=== PATIENT | female | born 1980 | race Caucasian/White ===

== ENCOUNTER 2020-10-16 17:39 | Emergency (ER) | payer OTHER, SELFPAY ==
[2020-10-16 17:53] VITALS: BP 133/83; PULSE 69; RESP 16; TEMP 36.1; O2SAT 100
--- NOTE | 2020-10-16 17:56 | ED.SKABFB ---
HPI - Skin/Abscess/Foreign Bdy General Chief complaint: Extremity Problem,Nontraumatic Stated complaint: pain left 1st digit Time Seen by Provider: 10/16/20 17:50 Source: patient and RN notes reviewed Mode of arrival: ambulatory Limitations: no limitations History of Present Illness HPI narrative: 40-year-old female presents concern for pain, swelling, drainage next to the nailbed of her first toe of the left foot. Reports she had an ingrown toenail that she picked at, and had purulent drainage. Reports the purulent drainage has improved, however she still has pain, redness, swelling. complaint: other (Paronychia) Related Data Home Medications Medication Instructions Recorded Confirmed bupropion HCl [Wellbutrin XL] 300 mg PO QAM 10/16/20 10/16/20 fluoxetine 60 mg PO QAM 10/16/20 10/16/20 Allergies Allergy/AdvReac Type Severity Reaction Status Date / Time acetaminophen [From Vicodin] Allergy Hives Verified 10/16/20 18:00 hydrocodone [From Vicodin] Allergy Hives Verified 10/16/20 18:00 Review of Systems Review of Systems: Narrative: CONSTITUTIONAL: Denies malaise, chills, sweats, or fever. SKIN: Reports pain, swelling, drainage next the nailbed of the first digit of the left foot MUSCULOSKELETAL: Denies musculoskeletal pain, decreased range of motion NEUROLOGIC: Denies numbness, weakness All systems reviewed & are unremarkable except as noted in HPI and below PMFSH Comments At time of signature, agree with nursing past medical, surgical, social and family history. There is no relevant family history pertinent to the presenting complaint Exam Narrative: Exam Narrative: GENERAL: Well-appearing, well-nourished, and in no acute distress. HEAD: Normocephalic, atraumatic. EYES: PERRLA, conjunctivae clear ENT: Mucous membranes moist. NECK: Supple. No lymphadenopathy CHEST: Clear to auscultation. No respiratory distress. HEART: Regular rate and rhythm. SKIN: Warm, dry. Erythema, mild edema to the lateral edge of the nailbed with first digit of the left foot with superficial abrasion with pink wound bed, small amount of purulent drainage noted, no fluctuation. NEURO: Alert and oriented x3. PSYCH: Normal mood and affect Course Course Emergency Course: Patient is aware of diagnosis, understands and agrees to treatment plan. Anticipatory guidance given. Patient agrees to follow-up as directed and is aware of reasons to seek care at the emergency department. Portions of this record may have been created with voice recognition software Vital Signs Vital signs: Vital Signs Temperature 96.9 F L 10/16/20 17:53 Pulse Rate 69 10/16/20 17:53 Respiratory Rate 16 10/16/20 17:53 Blood Pressure 133/83 10/16/20 17:53 Pulse Oximetry 100 10/16/20 17:53 Temperature 96.9 F L 10/16/20 17:53 Pulse Rate 69 10/16/20 17:53 Respiratory Rate 16 10/16/20 17:53 Blood Pressure 133/83 10/16/20 17:53 Pulse Oximetry 100 10/16/20 17:53 Reviewed. MDM - Skin/Abscess/Foreign Bdy MDM Narrative Medical decision making narrative: Exam findings show no acute concerns or changes; patient is non-toxic appearing and is in no distress. Patient is appropriate for outpatient treatment and follow-up. Differential Diagnosis Differential diagnosis: Likely abscess of skin or subcutaneous tissue, cellulitis, impetigo and other (Paronychia, musculoskeletal injury) Critical Care Time Critical Care Time Critical Care Time: No Discharge Plan Discharge Clinical Impression: Paronychia Patient Disposition: Home, Self-Care Condition: Stable Instructions: Antibiotic Form, Paronychia (ED) Additional Instructions: Soak your nail: Soak your nail in a mixture of equal parts vinegar and water 3 or 4 times each day. This will help decrease inflammation. Apply a warm compress: Soak a washcloth in warm water and place it on your nail. This will help decrease inflammation. Elevate: Raise your nail above the level of your hea
== END 2020-10-16 18:02 | disposition home or self-care (01) ==
PROVIDERS: Emergency Provider Nurse Practitioner
DX: L03.032 Cellulitis of left toe (principal)
CPT/HCPCS: 99203; G0463

== ENCOUNTER 2021-01-09 16:15 | Emergency (ER) | payer OTHER, SELFPAY ==
[2021-01-09 16:23] VITALS: BP 138/74; PULSE 86; RESP 18; TEMP 36; O2SAT 98
--- NOTE | 2021-01-09 16:44 | ED.EAR ---
HPI - Ear Problem General Chief complaint: Ear Stated complaint: Lt ear Time Seen by Provider: 01/09/21 16:37 Source: patient and RN notes reviewed Mode of arrival: ambulatory Limitations: no limitations History of Present Illness HPI Narrative: Patient presents today complaining of left ear pain x3 weeks with nasal congestion, rhinorrhea. She also reports waxing and waning hearing in the left ear. She currently rates her pain 3/10 and has been taking allergy medication, Tylenol sinus, and [id number] eardrops without relief. 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 Denies cough, fever, sore throat. She has been vaccinated against COVID-19. Patient also reports frequent ear infections MD Complaint: ear pain and decreased hearing Related Data Home Medications Medication Instructions Recorded Confirmed bupropion HCl [Wellbutrin XL] 300 mg PO QAM 10/16/20 10/16/20 fluoxetine 60 mg PO QAM 10/16/20 10/16/20 duloxetine mg PO 01/09/21 Allergies Allergy/AdvReac Type Severity Reaction Status Date / Time acetaminophen [From Vicodin] Allergy Hives Verified 10/16/20 18:00 hydrocodone [From Vicodin] Allergy Hives Verified 10/16/20 18:00 Review of Systems Review of Systems: CONSTITUTIONAL: Denies body aches, fever, chills, or sweats. EYES: Denies visual changes, redness, or discharge. ENT: Denies sore throat. + Rhinorrhea, congestion, decreased hearing, left ear pain CARDIOVASCULAR: Denies chest pain, palpitations, or edema. RESPIRATORY: Denies cough or dyspnea. GASTROINTESTINAL: Denies abdominal pain, nausea, vomiting, or diarrhea. GENITOURINARY: Denies dysuria or hematuria. SKIN: Denies rash, itching, or wounds. MUSCULOSKELETAL: Denies back pain, joint pain, or myalgia. NEUROLOGIC: Denies headache, numbness, tingling, or weakness. PSYCH: Denies depression or anxiety. PMFSH Comments At time of signature, I have reviewed and agree with nursing past medical, surgical, social and family history unless otherwise noted. Please see nursing chart for further information. There is no relevant family history pertinent to the presenting complaint Exam Narrative: GENERAL: Well-appearing, well-nourished, and in no acute distress. HEAD: Normocephalic, atraumatic. EYES: EOMI. No redness or drainage. Conjunctivae normal. ENT: Mucous membranes pink and moist. Congested. Left TM retracted. Right TM mildly erythematous and bulging with clear fluid. Throat normal. Uvula midline. NECK: Normal AROM. Supple. No lymphadenopathy. CHEST: No respiratory distress. Clear to auscultation. HEART: Regular rate and rhythm. No murmur appreciated. Normal peripheral pulses. EXTREMITIES: Normal range of motion. No edema. SKIN: Warm, dry, no rash. Capillary refill normal. Normal skin turgor. NEURO: No focal deficits. Alert and oriented x3. Gait steady. PSYCH: Normal affect. No signs of depression or anxiety. Course Vital Signs Vital signs: Vital Signs Temperature 96.8 F L 01/09/21 16:23 Pulse Rate 86 01/09/21 16:23 Respiratory Rate 18 01/09/21 16:23 Blood Pressure 138/74 01/09/21 16:23 Pulse Oximetry 98 01/09/21 16:23 Temperature 96.8 F L 01/09/21 16:23 Pulse Rate 86 01/09/21 16:23 Respiratory Rate 18 01/09/21 16:23 Blood Pressure 138/74 01/09/21 16:23 Pulse Oximetry 98 01/09/21 16:23 Reviewed. Pt has been instructed to follow up with her PCP regarding her elevated blood pressure today. Medical Decision Making Differential Diagnosis Differential Diagnosis: URI, AOM, otitis externa, ruptured TM, serous otitis, eustachian tube dysfunction, sinusitis Vital Signs Vital Signs: Vital Signs Temperature 96.8 F L 01/09/21 16:23 Pulse Rate 86 01/09/21 16:23 Respiratory Rate 18 01/09/21 16:23 Blood Pressure 138/74 01/09/21 16:23 Pulse Oximetry 98 01/09/21 16:23 Temperature 96.8 F L 01/09/21 16:23 Pulse Rate 86 01/09/21 1
== END 2021-01-09 16:52 | disposition home or self-care (01) ==
PROVIDERS: Emergency Provider Nurse Practitioner
DX: J06.9 Acute upper respiratory infection, unspecified (principal)
CPT/HCPCS: 99213; G0463

== ENCOUNTER → 2021-04-17 13:31 | Outpatient (CLI) | payer OTHER, SELFPAY ==
--- NOTE | ~2021-04-17 | CT_ITS ---
EXAMINATION: CT sinus wo con DATE: 04/17/2021 13:50 INDICATION: Chronic sinusitis TECHNIQUE: Computed tomography (CT) of the paranasal sinuses was performed without contrast. Iterativ e reconstruction technique was employed. Exam dose: 306.55 mGy-cm total exam DLP. COMPARISON: None FINDINGS: There is leftward bowing of the nasal septum. There is moderately prominent asymmetric soft tissue swelling of the right middle and inferior nasal turbinates. The ostiomeatal units, paranasal sinuses and mastoid air cells are normally developed and aerated. IMPRESSION: Patent paranasal sinuses, ostiomeatal units and mastoid air cells Leftward bowing of nasal septum Asymmetric soft tissue swelling of right nasal turbinates Reviewed, dictated and finalized at [facility]. Reviewed, dictated and finalized at [facility].
== END ==
PROVIDERS: PCP Family Medicine; Visit Provider Otolaryngology
DX: J32.9 Chronic sinusitis, unspecified (principal); J34.2 Deviated nasal septum; M79.89 Other specified soft tissue disorders
CPT/HCPCS: 70486

== ENCOUNTER 2022-06-29 16:22 | Emergency (ER) | payer OTHER, SELFPAY ==
[2022-06-29 16:37] VITALS: BP 119/71; PULSE 75; RESP 18; TEMP 36.4; O2SAT 100
--- NOTE | 2022-06-29 16:59 | ED.URI ---
HPI - URI/Sore Throat General Chief Complaint: Upper Respiratory Infection Stated Complaint: sore throat; puss pockets Time Seen by Provider: 06/29/22 16:59 History of Present Illness HPI Narrative: 42-year-old female presented for complaint of sore throat, cough and left ear pain. Onset yesterday. Endorses multiple episodes of strep last year; works at a daycare. States Amoxicillin is no longer working for patient. denies shortness of breath, wheezing, nausea, vomiting, diarrhea, fevers or chills. Related Data Home Medications Medication Instructions Recorded Confirmed bupropion HCl 300 mg 24 hr tablet, 300 mg PO QAM 10/16/20 06/29/22 extended release (Wellbutrin XL) duloxetine 60 mg capsule,delayed 60 mg PO DAILY 01/09/21 06/29/22 release Allergies Allergy/AdvReac Type Severity Reaction Status Date / Time acetaminophen [From Vicodin] AdvReac Mild Hives Verified 06/29/22 17:08 hydrocodone [From Vicodin] AdvReac Mild Hives Verified 06/29/22 17:08 amoxicillin AdvReac Unknown Other Verified 06/29/22 17:09 Review of Systems Review of Systems: per HPI Exam Narrative: GENERAL: Mildly Ill-appearing, no acute distress. EYES: conjunctivae clear ENT: Mucous membranes moist. TMs pearly lara with normal light reflex bilaterally; no tragal tenderness. Oropharynx erythematous Tonsils enlarged without exudate. No drooling, no hoarseness, no trismus, uvula midline. No tripod positioning, hot potato voice, or soft palate swelling. NECK: Supple. No lymphadenopathy CHEST: Clear to auscultation, breath sounds equal. HEART: Regular rate and rhythm. No murmur heard. SKIN: Warm, dry, no rash. NEURO: Alert and oriented x3. Course Course Emergency Course: Patient is aware of diagnosis, understands and agrees to treatment plan. Anticipatory guidance given. Patient agrees to follow-up as directed and is aware of reasons to seek care at the emergency department. Portions of this record may have been created with voice recognition software Level of Care: Express Care Visit Vital Signs Vital signs: Vital Signs Temperature 97.5 F L 06/29/22 16:37 Pulse Rate 75 06/29/22 16:37 Respiratory Rate 18 06/29/22 16:37 Blood Pressure 119/71 06/29/22 16:37 Pulse Oximetry 100 06/29/22 16:37 Oxygen Delivery Room Air 06/29/22 16:37 Temperature 97.5 F L 06/29/22 16:37 Pulse Rate 75 06/29/22 16:37 Respiratory Rate 18 06/29/22 16:37 Blood Pressure 119/71 06/29/22 16:37 Pulse Oximetry 100 06/29/22 16:37 Oxygen Delivery Room Air 06/29/22 16:37 MDM - URI/Sore Throat MDM Narrative Medical decision making narrative: strep result reviewed with pt. States amoxicillin does not work for her. Will send zpack, states it has worked. Advise supportive treatments. Patient is appropriate for outpatient treatment and follow-up. Differential Diagnosis Differential diagnosis: Likely upper respiratory infection, viral infection and pharyngitis Lab Data Labs: Strep Screen Positive Group A Strep *(Reference Range: Negative)* Discharge Plan Discharge Clinical Impression: Strep pharyngitis Patient Disposition: Home, Self-Care Condition: Stable Additional Instructions: - Take the antibiotic as directed. Fever and sore throat typically resolve within one to three days. Most patients can return to work, school, or daycare after 12 to 24 hours of antibiotic therapy, provided you are fever free and otherwise well. -Eat and drink things that are easy to swallow, like soft foods, cool liquids, tea with honey, or popsicles . -Salt water gargles and/or may use topical anesthetic ( Chloraseptic spray) or lozenges to relieve dryness or throat pain -Alternate Tylenol and ibuprofen as needed for pain and fever as directed. -Frequent hand washing or hand file system installer is one of the best ways to prevent spread of infection. Throw away the toothbrus
== END 2022-06-29 17:08 | disposition home or self-care (01) ==
PROVIDERS: Emergency Provider Nurse Practitioner Family
DX: J02.0 Streptococcal pharyngitis (principal)
CPT/HCPCS: 87880; 99213; G0463

== ENCOUNTER 2022-07-31 16:56 | Emergency (ER) | payer OTHER, SELFPAY ==
[2022-07-31 17:18] VITALS: BP 128/79; PULSE 75; RESP 18; TEMP 36.4; O2SAT 100
--- NOTE | 2022-07-31 17:54 | ED.EAR ---
HPI - Ear Problem General Chief complaint: Ear Stated complaint: Lt Ear Irritation Time Seen by Provider: 07/31/22 17:56 Source: patient Mode of arrival: ambulatory Limitations: no limitations History of Present Illness HPI Narrative: 42-year-old female presented for complaint of left ear pain, onset this morning. She endorses a history of frequent ear infections and states this feels similar. She endorses Slightly decreased hearing, and associated sinus pressure, left side is worse than the right. Do not taken anything for symptoms today. denies Tinnitus, dizziness, cough, shortness cough, wheezing, nausea, vomiting, diarrhea, fevers or chills. MD Complaint: ear pain Related Data Home Medications Medication Instructions Recorded Confirmed bupropion HCl 300 mg 24 hr tablet, 300 mg PO QAM 10/16/20 07/31/22 extended release (Wellbutrin XL) duloxetine 60 mg capsule,delayed 60 mg PO DAILY 01/09/21 07/31/22 release Allergies Allergy/AdvReac Type Severity Reaction Status Date / Time acetaminophen [From Vicodin] AdvReac Mild Hives Verified 07/31/22 17:06 amoxicillin AdvReac Mild Hives Verified 07/31/22 17:06 hydrocodone [From Vicodin] AdvReac Mild Hives Verified 07/31/22 17:06 Review of Systems Review of Systems: CONSTITUTIONAL: Denies malaise, chills, or fever. EYES: Denies visual changes, redness, or discharge. ENT: per HPI CARDIOVASCULAR: Denies chest pain, palpitations, or edema. RESPIRATORY: Denies cough or dyspnea. GASTROINTESTINAL: Denies abdominal pain, nausea, vomiting, diarrhea SKIN: Denies rash or itching. MUSCULOSKELETAL: Denies myalgia. NEUROLOGIC: Denies headache. All systems reviewed & are unremarkable except as noted in HPI and below PMFSH Past Medical History Medical History (Updated 07/31/22 @ 18:07 by Angella Doty APRN) Depression Comments At time of signature, agree with nursing past medical, surgical, social and family history. There is no relevant family history pertinent to the presenting complaint Exam Narrative: GENERAL: appears in pain, nontoxic, in no acute distress. HEAD: Normocephalic EYES: PERRLA, conjunctivae clear ENT: Nares clear. Mucous membranes moist. right TM pearly lara with dull light reflex; left TM erythematous, bulging, with purulent effusion; no tragal tenderness. Oropharynx not erythematous without lesions. no drooling, no hoarseness, no trismus, uvula midline. NECK: Supple. No lymphadenopathy CHEST: Clear to auscultation, breath sounds equal. HEART: Regular rate and rhythm. No murmur heard. SKIN: Warm, dry, no rash. NEURO: Alert and oriented x3. PSYCH: Normal mood and affect Course Course Emergency Course: Patient is aware of diagnosis, understands and agrees to treatment plan. Anticipatory guidance given. Patient agrees to follow-up as directed and is aware of reasons to seek care at the emergency department. Portions of this record may have been created with voice recognition software Level of Care: Express Care Visit Vital Signs Vital signs: Vital Signs Temperature 97.6 F 07/31/22 17:18 Pulse Rate 75 07/31/22 17:18 Respiratory Rate 18 07/31/22 17:18 Blood Pressure 128/79 07/31/22 17:18 Pulse Oximetry 100 07/31/22 17:18 Oxygen Delivery Room Air 07/31/22 17:18 Temperature 97.6 F 07/31/22 17:18 Pulse Rate 75 07/31/22 17:18 Respiratory Rate 18 07/31/22 17:18 Blood Pressure 128/79 07/31/22 17:18 Pulse Oximetry 100 07/31/22 17:18 Oxygen Delivery Room Air 07/31/22 17:18 Reviewed Medical Decision Making MDM Narrative Medical decision making narrative: Advised supportive measures and signs/symptoms to go to the ER. Patient is appropriate for outpatient treatment and follow-up. Differential Diagnosis Differential Diagnosis: Coronavirus, strep pharyngitis, allergic rhinitis, upper respiratory tract infection, sinusitis, rhinosinusitis, nasopharyngitis, viral pharyngitis, otitis media, otiti
== END 2022-07-31 18:08 | disposition home or self-care (01) ==
PROVIDERS: Emergency Provider Nurse Practitioner Family; PCP Family Medicine
DX: H66.92 Otitis media, unspecified, left ear (principal); F32.9 Major depressive disorder, single episode, unspecified
CPT/HCPCS: 99213; G0463

== ENCOUNTER 2022-08-15 16:33 | Emergency (ER) | payer OTHER, SELFPAY ==
--- NOTE | ~2022-08-15 | XR_ITS ---
EXAMINATION: XR knee RT min 4V DATE: 08/15/2022 17:25 INDICATION: Right knee pain TECHNIQUE: Four views of the right knee were obtained. COMPARISON: None. FINDINGS: Alignment is normal. No fracture or osteochondral lesion. Joint spaces are normal with no e rosions. No joint effusion/synovitis. Soft tissues are unremarkable. IMPRESSION: 1. No acute osseous abnormality. Reviewed, dictated and finalized at [facility] [employer]
[2022-08-15 16:58] VITALS: BP 131/77; PULSE 79; RESP 16; TEMP 36.8; O2SAT 99
--- NOTE | 2022-08-15 17:09 | ED.LOWEXIN ---
HPI - Extremity Injury (Lower) General Chief Complaint: Extremity Injury, Lower Stated Complaint: rt knee pain Time Seen by Provider: 08/15/22 17:09 Source: patient Mode of arrival: ambulatory Limitations: no limitations History of Present Illness HPI Narrative: [age] for complaint right knee pain after injury 1 week ago. She states she twisted the right knee outward while ice skating; does not recall the exact events but does not believe she landed on the right knee. She endorses pain is to the medial aspect the right knee, worse with ambulating. Reports full ROM but reports pain with movement. She denies numbness, tingling, weakness of the lower extremity, she denies bruising or significant swelling to the knee. She has been using a soft knee sleeves and applying ice, taking Tylenol and ibuprofen. Related Data Home Medications Medication Instructions Recorded Confirmed bupropion HCl 300 mg 24 hr tablet, 300 mg PO QAM 10/16/20 07/31/22 extended release (Wellbutrin XL) duloxetine 60 mg capsule,delayed 60 mg PO DAILY 01/09/21 07/31/22 release Allergies Allergy/AdvReac Type Severity Reaction Status Date / Time acetaminophen [From Vicodin] AdvReac Mild Hives Verified 08/15/22 17:47 amoxicillin AdvReac Mild Hives Verified 08/15/22 17:47 hydrocodone [From Vicodin] AdvReac Mild Hives Verified 08/15/22 17:47 Review of Systems Review of Systems: CONSTITUTIONAL: Denies body aches, fever, chills CARDIOVASCULAR: Denies chest pain, palpitations, or edema. RESPIRATORY: Denies cough or dyspnea. SKIN: Denies rash, itching, or wounds. MUSCULOSKELETAL: per HPI NEUROLOGIC: Denies headache, numbness, tingling, or weakness. All systems reviewed & are unremarkable except as noted in HPI and below PMFSH Past Medical History Medical History Depression Comments At time of signature, I have reviewed and agree with nursing past medical, surgical, social and family history unless otherwise noted. Please see nursing chart for further information. There is no relevant family history pertinent to the presenting complaint Exam Narrative: GENERAL: Well-appearing CHEST: Speaks in full sentences. No respiratory distress. HEART: Regular rate and rhythm. Normal and equal peripheral pulses. EXTREMITIES: RLE has normal strength and sensation, Slightly limited range of motion at knee endorses medial knee pain with any movement. Mild TTP medially. No swelling or ecchymosis. No open wounds or obvious deformity; alignment normal, pulse palpable and equal bilaterally, skin warm, dry, pink. Capillary refill less than 3 seconds. SKIN: Warm, dry, no rash. NEURO: Alert and oriented x3. PSYCH: Normal mood and affect Course Course Emergency Course: Patient is aware of diagnosis, understands and agrees to treatment plan. Anticipatory guidance given. Patient agrees to follow-up as directed and is aware of reasons to seek care at the emergency department. Portions of this record may have been created with voice recognition software Level of Care: Express Care Visit Vital Signs Vital signs: Vital Signs Temperature 98.3 F 08/15/22 16:58 Pulse Rate 79 08/15/22 16:58 Respiratory Rate 16 08/15/22 16:58 Blood Pressure 131/77 08/15/22 16:58 Pulse Oximetry 99 08/15/22 16:58 Oxygen Delivery Room Air 08/15/22 16:58 Temperature 98.3 F 08/15/22 16:58 Pulse Rate 79 08/15/22 16:58 Respiratory Rate 16 08/15/22 16:58 Blood Pressure 131/77 08/15/22 16:58 Pulse Oximetry 99 08/15/22 16:58 Oxygen Delivery Room Air 08/15/22 16:58 Reviewed MDM - Extremity Injury (Lower) MDM Narrative Medical decision making narrative: result xray was reviewed with patient. She has Knee sleeve. Discussed possible etiologies and possible need for PT/additional imaging per PCP. Advised supportive measures and signs/symptoms to go to the ER. Pt is appropriate f
== END 2022-08-15 18:14 | disposition home or self-care (01) ==
PROVIDERS: Emergency Provider Nurse Practitioner Family; PCP Family Medicine
DX: M25.561 Pain in right knee (principal); X58.XXXA Exposure to other specified factors, initial encounter; Y93.21 Activity, ice skating
CPT/HCPCS: 73564; 99213; G0463